=== PATIENT | female | born 2000 ===

== ENCOUNTER 2024-03-24 20:22 | Emergency (ER) | payer SELFPAY ==
[~2024-03-24] VITALS: Ht 160 cm; Wt 81.8 kg
[2024-03-24 20:46] VITALS: TEMP 98.5
[2024-03-24] MEDS ORDERED: NS 1,000 ML IV ONE (22:00)
[2024-03-24 22:35] LABS: BASO % 0.4 % (0.0-2.0); EOS # 0.1 K/mm3 (0.0-0.7); GRAN # 5.9 K/mm3 (1.4-6.5); GRAN % 63.5 % (42.2-75.2); HEMOGLOBIN 11.2 g/dl (12.5-16.0); LYMPH # 2.6 K/mm3 (1.2-3.4); LYMPH % 27.6 % (20.0-51.0); MEAN CELL VOLUME 77 fl (80.0-100.0); MEAN CORPUSCULAR HEMOGLOBIN 25 pg (27-31); MEAN CORPUSCULAR HGB CONC 32 g/dl (33.0-37.0); MEAN PLATELET VOLUME 11.4 fl (7.4-10.4); MONO # 0.7 K/mm3 (0.1-0.6); MONO % 7.1 % (1.7-9.3); PLATELET COUNT 227 K/mm3 (130-400); RED BLOOD COUNT 4.51 M/mm3 (4.10-5.30); REDCELL DISTRIBUTION WIDTH-CV 15.9 % (11.5-14.5)
[2024-03-24 22:39] LABS: HEMATOCRIT 34.6 % (37.0-47.0)
[2024-03-24 22:48] LABS: ALBUMIN 2.9 g/dL (3.5-5.0); BILIRUBIN,TOTAL 0.1 mg/dL (0.2-1.2); CALCIUM 8.6 mg/dL (8.4-10.2); CREATININE, serum 0.61 mg/dL (0.57-1.11); TOTAL PROTEIN 5.9 g/dl (6.2-8.1)
[2024-03-24 23:05] LABS: URINE APPEARANCE CLEAR (CLEAR/HAZY); URINE BLOOD NEGATIVE (NEGATIVE); URINE COLOR YELLOW (YELLOW); URINE GLUCOSE NEGATIVE (NEGATIVE); URINE KETONE NEGATIVE (NEGATIVE); URINE NITRATE NEGATIVE (NEGATIVE); URINE PROTEIN(semi-quant) NEGATIVE (NEGATIVE); URINE UROBILINOGEN 0.2 E.U/dL (0.2-1.0)
[2024-03-24 23:22] LABS: COLLECTION METHOD CLEAN CATCH
[2024-03-24 23:34] VITALS: BP 110/68; PULSE 85
== END 2024-03-24 20:54 | disposition home or self-care (01) ==
LOC: COL.ER 20:22
PROVIDERS: Nurse Practitioner
DX: O99.891 Other specified diseases and conditions complicating pregnancy (principal); R53.83 Other fatigue; Z3A.15 15 weeks gestation of pregnancy
CPT/HCPCS: J7030

== ENCOUNTER 2024-09-19 21:28 | Inpatient (IN) | payer MEDICAID ==
[~2024-09-19] VITALS: Ht 162.6 cm; Wt 106.8 kg
[~2024-09-19 21:28] MED LIST: traZODone 50 MG TAB PO PRN
--- NOTE | 2024-09-19 21:35 | NUR ---
to L&D via wheelchair for labor assessment, accompanied by spouse. Pt tense, not answering questions. answerring all questions, loving and attentive. Pt coached to get out of wheelchair and onto bed. Explained to pt that we would put her on the monitor and check her cervix. states "she doesn't want her cervix checked she's afraid it will hurt' Pt moaning and bearing down with ctx. Explained that we needed to check her cervix to see what was going on. Pt crawls on bed on all fours, coached to turn to back for SVE. SVE bulging bag of water, bloody show. Attempt to apply FHR monitor states "she doesn't want that" Explained to pt and spouse importance of ensuring baby is ok. Monitor held in place, Variable noted, contiues to refuse monitor belts. Initially refuses BP. BP 141/93. Refuses BP cuff be left on. Pt moaning and bearing down. Refuses SVE 2146 Pt refuses IV access or lab draw. Charge Nurse Ana into room to discuss need for IV access and explanation of risks. Pt continues to refuse stating "put in in my chart I said no" 2149 Continues to refuse EFM belts. Explained Variable decelerations noted, but refuse. 0 Dr Stephenson into room. Offers AROM, pt and spouse refuse. Dr Stephenson to L&D desk. Pt moaning and bearing down. [address] B[address] starting to crown. Dr Stephenson into room. 221 SROM clear fluid. [address] Stephenson. 2220 Placenta delivers spont and intact with 3 vessel cord. access with initially refuses BP
[2024-09-19] MEDS ORDERED: LR 1,000 ML IV SCH (22:15)
[2024-09-19] MEDS ORDERED: LR 1,000 ML IV PRN (22:15)
[2024-09-19 22:20] VITALS: BP 135/92; PULSE 74
--- NOTE | 2024-09-19 22:20 | NUR ---
Placenta delivers spont and intact with 3 vessel cord. Pt agrees to BP check, stating but take the BP cuff off. Explained to pt that her blood pressure is high and that it should be monitored. Pt states "take it off. [place] and attentive to baby.
[2024-09-19] MEDS ORDERED: Magnes Hydrox (MOM) 80 MG/ML 30 ML CUP PO PRN (22:30)
[2024-09-19] MEDS ORDERED: Loratadine 10 MG TAB PO PRN (22:30)
[2024-09-19 23:15] VITALS: BP 133/81; PULSE 60; TEMP 98.9
[2024-09-19] MEDS ORDERED: Ibuprofen 800 MG TAB PO SCH (23:45)
[2024-09-19] MEDS ORDERED: oxyCODONE 5 MG TAB PO PRN (23:45)
[2024-09-19] MEDS ORDERED: Tdap Vaccine 0.5 ML SYRINGE IM SCH (23:45)
[2024-09-19] MEDS ORDERED: Measles/Mumps/Rubella Virus Vaccine Live w Diluent 0.5 ML VIAL SQ SCH (23:45)
[2024-09-19] MEDS ORDERED: Acetaminophen 500 MG TAB PO SCH (23:45)
[2024-09-19] MEDS ORDERED: Phenylephrine/Mineral Oil/Petrolatum 57 GM TUBE RC PRN (23:45)
[2024-09-19] MEDS ORDERED: Naloxone 0.4 MG/ML VIAL IV PRN (23:45)
[2024-09-19] MEDS ORDERED: Mag/Al Hydrox/Simeth Susp 30 ML CUP PO PRN (23:45)
[2024-09-19] MEDS ORDERED: Witch Hazel 50% Pads Bulk TUB TP PRN (23:45)
--- NOTE | 2024-09-20 00:15 | NUR ---
Up to bathroom with steady gait. Unable to void at this time. passes 100 gram clot, performs own pericare. Puts own gown on and ambulates to room
[2024-09-20 01:30] VITALS: BP 130/66; PULSE 80
[2024-09-20] MEDS ORDERED: Naloxone 0.4 MG/ML VIAL IV PRN (02:00)
[2024-09-20] MEDS ORDERED: LR 500 ML IV PRN (02:00)
[2024-09-20] MEDS ORDERED: diphenhydrAMINE 50 MG/ML 1 ML VIAL IV PRN (02:00)
[2024-09-20] MEDS ORDERED: Ondansetron 4 MG/2 ML VIAL IV PRN (02:00)
[2024-09-20] MEDS ORDERED: ePHEDrine 50 MG/10 ML VIAL IV PRN (02:00)
[2024-09-20] MEDS ORDERED: LR 1,000 ML IV ONE (02:00)
[2024-09-20] MEDS ORDERED: diphenhydrAMINE 25 MG CAP PO PRN (02:00)
[2024-09-20 05:00] VITALS: BP 107/62; PULSE 89; TEMP 99
[2024-09-20] MEDS ORDERED: Sennosides/Docusate 8.6-50 MG TAB PO SCH (08:00)
[2024-09-20 08:10] VITALS: BP 120/88; PULSE 70; TEMP 97.5
--- NOTE | 2024-09-20 16:06 | NUR ---
SW received social service consult to visit with patient about PKU screening. SW visited with patient and her partner/infants father about the refusal and provide education on screening. Both parents report that they are familiar with the screening and risk. They informed SW that all three of their children did not receive screening at and informed SW that it was a taoism preference at this time. SW received no further medical concerns from nursing or medical staff on this matter. No further action needed.
[2024-09-20 16:30] VITALS: BP 113/82; PULSE 93; TEMP 97.7
[2024-09-20 20:30] VITALS: BP 110/67; PULSE 92; TEMP 98
[2024-09-21 07:20] VITALS: BP 113/69; PULSE 75; TEMP 97.8
[2024-09-21] MEDS ORDERED: IBU800 M1 PO (08:52)
[2024-09-21 17:20] VITALS: BP 127/83; PULSE 100; TEMP 97.9
--- NOTE | 2024-09-21 17:42 | NUR ---
DISCHARGE INSTRUCTIONS REVIEWED WITH PATIENT AND SPOUSE, PATIENT VERBALIZES UNDERSTANDING. PATIENT AMBULATORY OFF UNIT AND DISCHARGED IN STABLE CONDITION.
== END 2024-09-21 17:42 | disposition home or self-care (01) | DRG 807 ==
LOC: LDRO 21:28 → LDR 22:12 → OB 09-20 08:00
PROVIDERS: ADMIT Obstetrics & Gynecology
PROC: 10E0XZZ Delivery of Products of Conception, External Approach (ICD-10-PCS; principal; 2024-09-21)
DX: O48.0 Post-term pregnancy (principal); Z37.0 Single live birth; Z3A.40 40 weeks gestation of pregnancy